=== PATIENT | male | born 2000 | race Caucasian/White ===

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

== ENCOUNTER 2021-08-20 14:39 | Emergency (ER) | payer SELFPAY ==
[~2021-08-20] VITALS: Ht 177.8 cm; Wt 90.3 kg
[2021-08-20 14:55] VITALS: BP 128/75
[2021-08-20] MEDS ORDERED: IBUPROFEN 800 MG TAB PO ONE (15:05)
[2021-08-20] MEDS ORDERED: NACL 0.9% 1,000 ML IV ONE (15:35)
[2021-08-20 15:47] LABS: BASOPHILS % (AUTO) 0.4 % (0.0-2.0); HEMATOCRIT 46.4 % (36-52); HEMOGLOBIN 15.5 g/dL (12.0-18.0); LYMPHOCYTES # (AUTO) 1.5 K/uL (2.0-11.5); LYMPHOCYTES % (AUTO) 23.1 % (20.5-51.1); MEAN CORPUSCULAR HEMOGLOBIN 28 pg (27-31); MEAN CORPUSCULAR HGB CONC 34 g/dL (33-37); MEAN CORPUSCULAR VOLUME 84.5 fL (80-94); MONOCYTES # (AUTO) 0.9 K/uL (0.8-1.0); MONOCYTES % (AUTO) 14.1 % (1.7-9.3); NEUTROPHILS # (AUTO) 4.1 K/uL (1.8-7.7); NEUTROPHILS % (AUTO) 62.4 % (42.2-75.2); PLATELET COUNT (AUTO) 245 K/uL (140-450); RED BLOOD CELL COUNT(AUTO) 5.49 MIL/uL (4.20-6.10); RED CELL DISTRIBUTION WIDTH 12.4 % (11.6-13.7); WHITE BLOOD COUNT (AUTO) 6.5 K/uL (4.5-11.0)
--- NOTE | 2021-08-20 15:54 | NUR ---
PT C/O HEADACHE, COUGH, DIZZINESS X3 DAYS. STACH ON MONITOR 150S. IV INSERTED TO RIGHT AC #[id number]. FLUIDS INFUSING PER ORDER.
[2021-08-20 16:05] LABS: CARBON DIOXIDE 27.5 mmol/L (21-32); CREATININE 1.5 mg/dL (0.6-1.3); GFR ARICAN-AMERICAN 77 mL/min (>90); GLUCOSE 99 mg/dL (74-106); TOTAL BILIRUBIN 0.5 mg/dL (0.0-1.0)
[2021-08-20 16:19] LABS: BARBITURATE, URINE NEGATIVE ng/ml (NEG <=200); BENZODIAZEPINE, URINE NEGATIVE ng/mL (NEG <=200); CANNABINOID, URINE NEGATIVE ng/mL (NEG <=50); COCAINE, URINE NEGATIVE ng/mL (NEG <=300); OPIATE, URINE NEGATIVE ng/mL (NEG <=2000); PHENCYCLIDINE SCREEN,URINE NEGATIVE ng/mL (NEG <=25)
[2021-08-20 16:20] LABS: ALBUMIN 4.1 g/dL (3.4-5.0); ANION GAP 11.9 (8-16); CHLORIDE 100 mmol/L (98-107); POTASSIUM 3.4 mmol/L (3.5-5.1); SODIUM SERUM 136 mmol/L (136-145); UREA NITROGEN, BLOOD 11 mg/dL (7-18)
[2021-08-20 16:48] LABS: ASPARTATE AMINOTRANSFERASE 44 U/L (15-37)
[2021-08-20 18:06] VITALS: BP 110/76
--- NOTE | 2021-08-20 18:07 | NUR ---
HR REMAINS RANGING FROM 130 TO 140S, DR PURI AWARE. OK TO DC PER MD
--- NOTE | 2021-08-20 18:15 | NUR ---
Patient discharged with v/s stable. Written and verbal after care instructions given and explained. Patient verbalized understanding. Ambulatory with steady gait. All questions addressed prior to discharge. Advised to follow up with PMD.
== END 2021-08-20 18:15 | disposition home or self-care (01) ==
LOC: MED 14:39
DX: U07.1 COVID-19 (principal); R00.0 Tachycardia, unspecified; R51.9 Headache, unspecified; J02.9 Acute pharyngitis, unspecified; R11.2 Nausea with vomiting, unspecified
CPT/HCPCS: 36415; 71045; 80053; 80305; 83690; 84439; 84443; 84484; 85025; 85379; 87426; 87804; 93005; 96360; 99285; Q0092; J7030